=== PATIENT | male | born 1960 | race Caucasian/White ===

== ENCOUNTER 2025-09-19 13:21 | Emergency (ER) | payer OTHER, SELFPAY ==
--- NOTE | ~2025-09-19 | XR_ITS ---
EXAMINATION: XR finger 1st RT min 2V DATE: 09/19/2025 14:00 INDICATION: Swelling, chronic wound. Rule out osteomyelitis. TECHNIQUE: 4 views of the right thumb were obtained. COMPARISON: None. FINDINGS: Diffuse soft tissue swelling of the thumb is noted. No gas bubbles or foreign objects are seen. Erosive changes of the bony cortical margin of the distal phalanx is noted suggestive of possible osteomyelitis. Interphalangeal joint space and metacarpophalangeal joint spaces are normal. IMPRESSION: 1. Diffuse soft tissue swelling of thumb. Erosive changes of the tip of the distal phalanx suspicious of osteomyelitis. Further evaluation with MRI or three-phase nuclear bone scan is suggested. Reviewed, dictated and finalized at location [facility] IMPRESSION: 1. Diffuse soft tissue swelling of thumb. Erosive changes of the tip of the dis xander phalanx suspicious of osteomyelitis. Further evaluation with MRI or three-p hase nuclear bone scan is suggested.
[2025-09-19 13:28] VITALS: BP 142/86; PULSE 95; RESP 18; TEMP 36.9; O2SAT 100
--- NOTE | 2025-09-19 13:55 | ED_ITS ---
HPI - Extremity Injury (Upper) General Chief Complaint: Extremity Injury, Upper Stated Complaint: right thumb swollen and pain Time Seen by Provider: 09/19/25 13:45 Source: patient, family (friend) and RN notes reviewed Mode of arrival: ambulatory Limitations: no limitations History of Present Illness HPI narrative: 64-year-old male patient presents today complaining of swelling and severe pain to the right thumb x 2-3 days without recent injury. Denies numbness or tingling. Currently rates his pain 10/10 and has been taking Motrin with little relief. Related Data Home Medications ?Medication ?Instructions ?Recorded ?Confirmed ?Last Taken ?Type No Home Medications 09/19/25 09/19/25 U nknown History Allergies Allergy/AdvReac Type Severity Reaction Status Date / Time No Known Allergies Allergy Verified 09/19/25 13:36 PMFSH Comments At time of signature, I have reviewed and agree with nursing past medical, surgical, social and family history unless otherwise noted. Please see nursing chart for further information. There is no relevant family history pertinent to the presenting complaint Exam Narrative: GENERAL: Chronically ill-appearing, well-nourished, and in no acute distress. HEAD: Normocephalic, atraumatic. EYES: EOMI. No redness or drainage. Conjunctivae normal. ENT: Mucous membranes pink and moist. NECK: Normal AROM. CHEST: No respiratory distress. EXTREMITIES: both hands are chronically cracked and fissured with clubbed tips on all fingers. Right 1st finger is mildly swollen and erythematous and tender to palpation. He has a deeper skin fissure to the palmar aspect of the IPJ that seems to be more painful. Distal sensation intact. Capillary refill normal. Decreased range of motion due to pain and swelling. SKIN: Warm, dry, no rash. Capillary refill normal. Normal skin turgor. NEURO: No focal deficits. Alert and oriented x3. Gait steady. PSYCH: Normal affect. No signs of depression or anxiety. Course Course Level of Care: Express Care Visit Vital Signs Vital signs: Vital Signs Temperature 98.5 F 09/19/25 13:28 Pulse Rate 95 09/19/25 13:28 Respiratory Rate 18 09/19/25 13:28 Blood Pressure 142/86 H 09/19/25 13:28 Pulse Oximetry 100 09/19/25 13:28 Oxygen Delivery Room Air 09/19/25 13:28 Temperature 98.5 F 09/19/25 13:28 Pulse Rate 95 09/19/25 13:28 Respiratory Rate 18 09/19/25 13:28 Blood Pressure 142/86 H 09/19/25 13:28 Pulse Oximetry 100 09/19/25 13:28 Oxygen Delivery Room Air 09/19/25 13:28 Reviewed Transfer Transfered to: [facility] ([place]) Transportation: Other (Private vehicle) Transfer rationale: Evaluation of finger, possible osteomyelitis Accepting physician: Gauri. Report given to NANCY Ramirez MDM - Extremity Injury (Upper) MDM Narrative Medical decision making narrative: 64-year-old male patient presents today complaining of swelling and severe pain to the right thumb x 2-3 days without recent injury. Denies numbness or tingling. Currently rates his pain 10/10 and has been taking Motrin with little relief. Upon exam,both hands are chronically cracked and fissured with clubbed tips on all fingers. Right 1st finger is mildly swollen and erythematous and tender to palpation. He has a deeper skin fissure to the palmar aspect of the IPJ that seems to be more painful. Distal sensation intact. Capillary refill normal. Decreased range of motion due to pain and swelling. X-ray shows Diffuse soft tissue swelling of thumb. Erosive changes of the tip of the distal phalanx suspicious of osteomyelitis. Further evaluation with MRI or three-phase nuclear bone scan is suggested.Patient has no PCP and is recommended that he be transferred to the ER for further evaluation of possible osteomyelitis. Patient agrees with plan. Would like to go to [facility] at [place]. Report called. Vital signs stable. Differential Diagnosis Differential diagnosis: Likely other (Cellulitis, osteomyelitis, impetigo) Imaging Data Radiologist's impression: ITS Impressions Finger X-Ray 09/19/25 14:02 IMPRESSION: 1. Diffuse soft tissue swelling of thumb. Erosive changes of the tip of the distal phalanx suspicious of osteomyelitis. Further evaluation with MRI or three-phase nuclear bone scan is suggested. Critical Care Time Critical Care Time Critical Care Time: No Discharge Plan Discharge Clinical Impression: Osteomyelitis of finger Patient Disposition: Acute Care Hospital Condition: Serious Patient Language: Persian Prescriptions: No Action No Home Medications Follow-up/Referrals: PHYSICIAN,AIRLINE MANAGERIAL SUPERVISOR [Primary Care Provider, Internal Medicine] Time of Disposition: 14:32
== END 2025-09-19 14:37 | disposition short-term general hospital (02) ==
PROVIDERS: Emergency Provider Nurse Practitioner
DX: M86.9 Osteomyelitis, unspecified (principal)
CPT/HCPCS: 73140; 99213; G0463